=== PATIENT | female | born 1930 | race Caucasian/White ===

== ENCOUNTER 2017-11-06 23:00 | Inpatient (IN) | payer OTHER ==
[~2017-11-06] VITALS: Ht 165.1 cm; Wt 72.6 kg
--- NOTE | ~2017-11-06 | EKG ---
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
--- NOTE | ~2017-11-06 | PR ---
[place], [place] PROGRESS NOTE NAME: LENNY GREGORIO UNIT #: [id number] ROOM: 315 DOCTOR: MELODIE VIGIL MD BIRTHDATE: [birth year] DOS: 11/13/2017 CHIEF COMPLAINT: "Morning." SUMMARY OF THE VISIT: The patient was interviewed as she was resting quietly in bed. The respiratory therapist was there, listening to her lungs and did note that she felt that the one side sounded rather wet and congested. The patient herself voiced no complaints, smiled readily. Her responses though this morning tended to be short and simple. At times, it was hard to get her to focus. MENTAL STATUS: She is alert and oriented to self, unclear place, certainly not time. Mood is fairly euthymic. Affect appropriate. No yuriy, hypomania or psychosis is noted. Short term memory continues to be problematic. PLAN: I have ordered a chest x-ray, PA and left lateral along with a CBC with diff to rule out the possibility of pneumonia. We will continue her current psychotropics. I defer to the hospitalist expertise for any further intervention. MELODIE VIGIL MD CM:PNTRANS [id number] MELODIE VIGIL MD 11/13/17 1530 interface
--- NOTE | ~2017-11-06 | PR ---
[place], [place] PROGRESS NOTE NAME: LENNY GREGORIO UNIT #: [id number] ROOM: 315 DOCTOR: MELODIE VIGIL MD BIRTHDATE: [birth year] DOS: 11/14/2017 CHIEF COMPLAINT: "Oh, hi there." SUMMARY OF THE VISIT: The patient was interviewed in the dining area where she was sitting watching television. She engaged readily in brief superficial conversation. Of note, she continues to rub her hands. Attempts to stop her and redirect are only minimally effective. MENTAL STATUS: She is alert and oriented with time gaps. Mood does seem to be more euthymic. Affect is more appropriate. There is no yuriy, hypomania or psychosis. Short-term memory continues to be problematic. PLAN: I will maintain her current psychotropics, renew p.r.n. Ativan if she requires intervention. I have discussed with nursing the option of getting her meds to stop her from injuring her hands further. MELODIE VIGIL MD CM:PNTRANS [id number] MELODIE VIGIL MD 11/14/17 2215 interface
--- NOTE | ~2017-11-06 | PR ---
[place], [place] PROGRESS NOTE NAME: LENNY GREGORIO UNIT #: [id number] ROOM: 315 DOCTOR: MELODIE VIGIL MD BIRTHDATE: [birth year] DOS: 11/15/2017 CHIEF COMPLAINT: "Something is going on here." SUMMARY OF THE VISIT: The patient was interviewed in the dining area. She had already eaten her breakfast and was sitting there, some scanning behavior was noted and she voiced some paranoia, stating that something funny is going on here, but she could not put her finger on it. Nurses' notes similar behavior and that her paranoia seems to have increased in the last 24-48 hours. MENTAL STATUS: She is alert and oriented with time gaps. Mood does seem to be somewhat anxious and fretful and there is an increase in her paranoia. Short-term memory has gaps, otherwise, she is intact. PLAN: Increase her Risperdal from 0.25 mg twice a day to 0.5 mg twice a day. Monitor for risk, benefit, engage in individual and kent milieu activity, returning to the least restrictive environment when psychiatrically stable. MELODIE VIGIL MD CM:PNTRANS [phone] [id number] MELODIE VIGIL MD 11/15/172203 interface
--- NOTE | ~2017-11-06 | PR ---
[place], [place] PROGRESS NOTE NAME: LENNY GREGORIO UNIT #: [id number] ROOM: 315 DOCTOR: MELODIE VIGIL MD BIRTHDATE: [birth year] DOS: 11/16/2017 INTERVAL NOTE CHIEF COMPLAINT: "Oh, hello doctor." SUMMARY OF THE VISIT: The patient was interviewed in the dining area after she had completed her breakfast. She continues to rub her hands nonstop. She continues to do so whenever her gloves are removed. She is rubbing herself to the point where she is quite bruised on her hands, attempts to redirect her and successful. MENTAL STATUS: She is alert and oriented. She does seem to be somewhat fretful and anxious. She redirects well. She is trending towards euthymia and there is no hypomania or psychosis noted. Short term memory continues to be problematic. PLAN: I will add low dose Atarax 10 mg 3 times a day to try to decrease some of her anxiety without making her overly sedate. We will engage in individual and kent milieu activity, returning to the least restrictive environment when psychiatrically stable. MELODIE VIGIL MD CM:PNTRANS 0 07 MELODIE VIGIL MD 11/16/172205 interface
--- NOTE | ~2017-11-06 | PR ---
[place], [place] PROGRESS NOTE NAME: LENNY GREGORIO UNIT #: [id number] ROOM: 315 DOCTOR: MELODIE VIGIL MD BIRTHDATE: [birth year] DOS: 11/08/2017 CHIEF COMPLAINT: "I have been here for about a week. I slept here last night." SUMMARY OF THE VISIT: The patient was interviewed in the dining area where she was sitting engaging in conversation with a peer. She stopped and engaged in conversation with me. She voiced no complaint. She is very confused; however, and reports that she believes she has been here for about a week or so having slept here last night. She could not tell me what she had for breakfast and deflected the questions. MENTAL STATUS: She is alert and oriented to person, possibly place, not to time. Mood does seem to be fairly euthymic. Affect appropriate. There still seems to be residual psychotic symptoms present. Short-term memory has gaps. PLAN: I will add Exelon patch 4.6 mg a day and plan to augment with Namenda, add Risperdal 0.25 mg twice daily to address some of the delusional system. Engage in individual and kent milieu activity, returning home or the least restrictive environment when psychiatrically stable. MELODIE VIGIL MD CM:PNTRANS [id number] MELODIE VIGIL MD 11/08/17 2211 interface
--- NOTE | ~2017-11-06 | PR ---
[employer], [place] PROGRESS NOTE NAME: LENNY GREGORIO UNIT #: [id number] ROOM: 315 DOCTOR: MELODIE VIGIL MD BIRTHDATE: [birth year] DOS: 11/12/2017 CHIEF COMPLAINT: "Oh good morning, thank you for stopping." SUMMARY OF THE VISIT: The patient was interviewed as she was sitting in the dining area finishing her breakfast. She stopped and engaged in pleasant conversation. She seemed calmer and less anxious, less depressed. She engaged in very superficial conversation. At times, her responses were not appropriate to the questions asked. She remains confused. MENTAL STATUS: She is alert and oriented to person, possibly place, although doubtful not to time. Mood does seem to be trending towards euthymia. Affect is more appropriate. There is no yuriy, hypomania or psychosis. Short term memory continues to be problematic. PLAN: I will max out her Namenda now bringing the dose to 10 mg twice a day, augmenting the effectiveness of the Exelon patch, continue to engage in individual and kent milieu activity, returning then to the least restrictive environment when psychiatrically stable. MELODIE VIGIL MD CM:PNTRANS MELODIE VIGIL MD 11/12/1733 interface
--- NOTE | ~2017-11-06 | DS ---
[place], [place] DISCHARGE SUMMARY [id number] UN[facility] #: [id number] ROOM: 315 DOCTOR: MELODIE VIGIL MD BIRTHDATE: [birth year] DOS: 11/17/2017 CHIEF COMPLAINT: "There is pain to all over my hands." HISTORY OF PRESENT ILLNESS: This is an 86-year-old white female who lives at [facility] in [place]. The patient presents due to increased mood lability and excessive rubbing and picking at her arms to the point of drawing blood and making them bruised. She reports that somebody has painted red paint on her or that there is something under her skin. She continues to rub her hands to the point that they are raw. Attempts to redirect have led to her becoming increasingly more agitated and aggressive. She is admitted now to rule out organic factors to attempt to stabilize on medication, to engage in individual and kent milieu activity and to determine the least restrictive environment to which she could return. SUMMARY OF HOSPITAL COURSE: The patient was admitted to the unit where her Zoloft was discontinued in lieu of Risperdal 0.5 twice a day. Additionally, Exelon patch and Namenda were utilized to combat the symptoms of dementia. They were utilized to help improve or maintain ADLs, behavior and cognition. She tolerated all of these medicines well and the dose of the Exelon and Namenda were rapidly brought up to their maximum doses with the Exelon being brought up to 13.3 mg daily and Namenda 10 mg twice daily. Again, she tolerated these medications well. During this course of time, her agitation and aggression dissipated and she was bright, pleasant and cooperative. She still rubbed her hands, but would redirect more readily. We did find that if we put mittens on her, that she would stop doing so and she was very comfortable in doing this. Toward the latter part of her stay, Atarax 10 mg 3 times a day was added to further help decrease her anxiety, which seemed to precipitate some of the scratching. Again, she tolerated the medications well. There was no sedation, somnolence, extrapyramidal symptoms or tardive dyskinesia. She was discharged then back to [facility] to return back to her living environment. MENTAL STATUS AT DISCHARGE: She is alert and oriented to person, possibly place, although doubtful, not time. Mood does seem to be more euthymic. Affect appropriate. There is no yuriy, hypomania or psychosis. Short-term memory is very problematic, otherwise she is intact. FINAL DIAGNOSES: Brief psychotic disorder; anxiety disorder, not otherwise specified and Alzheimer's dementia. DISPOSITION: The patient's prescriptions have been e-scribed to the [facility] pharmacy. She will return to [facility] and have followup per the facility psychiatrist. [place], [place] DISCHARGE SUMMARY NAME: LENNY GREGORIO UNIT #: [id number] ROOM: 315 DOCTOR: MELODIE VIGIL MD BIRTHDATE: [birth year] MELODIE VIGIL MD CM:TIFFANI [id number] MELODIE VIGIL MD 11/17/17 1841 interface
[2017-11-06 23:02] VITALS: BP 130/62
[2017-11-06 23:23] LABS: BASO % 0.5 % (0.0-1.0); EOS # 0.2 10*3/uL (0.0-0.4); HEMOGLOBIN 12.2 g/dl (12.0-16.0); LYMPH # 2.2 10*3/uL (1.3-4.4); LYMPH % 28.5 % (27.0-41.0); MEAN CELL VOLUME 92.9 fl (81.0-99.0); MEAN CORPUSCULAR HGB 29.8 pg (27.0-31.0); MEAN CORPUSCULAR HGB CONC 32.1 g/dl (33.0-37.0); MEAN PLATELET VOLUME 10.7 fl (9.6-12.3); MONO # 0.5 10*3/uL (0.1-1.0); MONO % 6.9 % (3.0-9.0); NEUT # 4.7 10*3/uL (2.3-7.9); NEUT % 61.8 % (47.0-73.0); PLATELET COUNT AUTOMATED 170 10*3/uL (130-400); RED BLOOD COUNT 4.09 10*6/uL (4.10-5.10); RED CELL DISTRI WIDTH 14.6 % (0-14.5); WHITE BLOOD COUNT 7.7 10*3/uL (4.8-10.8)
[2017-11-06 23:40] LABS: ALBUMIN 3.3 gm/dl (3.1-4.5); ALKALINE PHOSPHATASE 84 U/L (45-117); BUN 23 mg/dl (7-24); CHLORIDE 104 mmol/L (98-107); POTASSIUM 3.7 mmol/L (3.5-5.1); SGOT/AST 24 IU/L (3-35); SGPT/ALT 18 U/L (12-78); SODIUM 140 mmol/L (136-145); TOTAL PROTEIN 6.6 gm/dL (6.4-8.2)
[2017-11-06 23:47] LABS: ACETAMINOPHEN (TYLENOL) 4.9 ug/ml (10-30); ETHYL ALCOHOL < 3.0 mg/dl (<3)
[2017-11-06 23:59] LABS: BILIRUBIN NEGATIVE (NEGATIVE); BLOOD NEGATIVE (NEGATIVE); CLARITY SL CLOUDY (CLEAR); COLOR YELLOW (YELLOW); GLUCOSE NEGATIVE (NEGATIVE); KETONE NEGATIVE (NEGATIVE); LEUKO ESTERASE NEGATIVE (NEGATIVE); NITRITE POSITIVE (NEGATIVE); PH 5.5 (5.0-9.0); UROBILINOGEN 0.2 E.U./dl (0.2-1.0)
[2017-11-07] MEDS ORDERED: LASIX40 MG PO (00:05)
[2017-11-07] MEDS ORDERED: POTASSIUM CHLO10 ME5 PO (00:07)
[2017-11-07] MEDS ORDERED: POTASSIUM CHLO20 ME3 PO (00:07)
[2017-11-07] MEDS ORDERED: LISINOPRIL20 MG PO (00:08)
[2017-11-07] MEDS ORDERED: OXYBUTYNIN5 MG PO (00:08)
[2017-11-07] MEDS ORDERED: VICODIN 5-3001 EACH PO (00:09)
[2017-11-07] MEDS ORDERED: XARE20MG PO (00:09)
[2017-11-07] MEDS ORDERED: METOPROLOL SUCC25 M2 PO (00:09)
[2017-11-07 00:14] LABS: URINE AMPHETAMINES < 1000 (1000ng/ml); URINE BARBITURATES < 200 (200ng/ml); URINE BENZODIAZEPINES < 200 (200ng/ml); URINE CANNABINOIDS (THC) < 50 (50ng/ml); URINE COCAINE < 300 (300ng/ml); URINE METHADONE < 300 (300ng/ml); URINE OPIATES < 300 (300ng/ml)
[2017-11-07 00:16] LABS: BACTERIA 4+; RBC 0-2 rbc/hpf (0-2); URINE PHENCYCLIDINE < 25 (25ng/ml)
[2017-11-07] MEDS ORDERED: MACROBID100 M1 PO (00:58)
[2017-11-07 01:18] LABS: INTERNATIONAL NORM RATIO 1.9 (2.0-3.5)
[2017-11-07 02:56] VITALS: BP 114/64
[2017-11-07 02:57] VITALS: BP 114/64
[2017-11-07 03:04] VITALS: BP 114/64
[2017-11-07 07:49] VITALS: BP 118/76
[2017-11-07 07:53] LABS: BUN 18 mg/dl (7-24); CHLORIDE 107 mmol/L (98-107); CREATININE 0.84 mg/dL (0.55-1.02); POTASSIUM 3.4 mmol/L (3.5-5.1); SODIUM 141 mmol/L (136-145)
[2017-11-07] MEDS ORDERED: SERTRALINE HYD100 MG PO (09:59)
[2017-11-07] MEDS ORDERED: COUMADIN2.5 M1 PO (10:00)
[2017-11-07] MEDS ORDERED: 'KLONOPIN0.5 MG PO (10:01)
[2017-11-07] MEDS ORDERED: FLONASE ALLERG9.9 ML NAS (10:02)
[2017-11-07 19:40] VITALS: BP 116/67
[2017-11-08 06:56] LABS: BUN 16 mg/dl (7-24); CHLORIDE 105 mmol/L (98-107); POTASSIUM 3.7 mmol/L (3.5-5.1); SODIUM 141 mmol/L (136-145)
[2017-11-08 07:03] LABS: BASO % 0.3 % (0.0-1.0); EOS # 0.2 10*3/uL (0.0-0.4); EOS % 1.9 % (1.0-4.0); HEMATOCRIT 39.9 % (37.0-47.0); HEMOGLOBIN 12.8 g/dl (12.0-16.0); LYMPH # 1.5 10*3/uL (1.3-4.4); LYMPH % 15.4 % (27.0-41.0); MEAN CELL VOLUME 93.2 fl (81.0-99.0); MEAN CORPUSCULAR HGB 29.9 pg (27.0-31.0); MEAN CORPUSCULAR HGB CONC 32.1 g/dl (33.0-37.0); MEAN PLATELET VOLUME 11.2 fl (9.6-12.3); MONO # 0.4 10*3/uL (0.1-1.0); MONO % 3.9 % (3.0-9.0); NEUT # 7.4 10*3/uL (2.3-7.9); NEUT % 78.2 % (47.0-73.0); PLATELET COUNT AUTOMATED 163 10*3/uL (130-400); RED BLOOD COUNT 4.28 10*6/uL (4.10-5.10); RED CELL DISTRI WIDTH 14.8 % (0-14.5); WHITE BLOOD COUNT 9.5 10*3/uL (4.8-10.8)
[2017-11-08 07:28] LABS: INTERNATIONAL NORM RATIO 1.8 (2.0-3.5)
[2017-11-08 08:14] VITALS: BP 110/62
[2017-11-08 20:15] VITALS: BP 106/60
[2017-11-09 08:07] VITALS: BP 132/68
[2017-11-09 19:50] VITALS: BP 114/59
[2017-11-10 07:37] VITALS: BP 129/69
[2017-11-10 07:43] LABS: INTERNATIONAL NORM RATIO 1.9 (2.0-3.5)
[2017-11-10 19:43] VITALS: BP 142/50
[2017-11-11 06:41] LABS: INTERNATIONAL NORM RATIO 1.8 (2.0-3.5)
[2017-11-11 07:31] VITALS: BP 150/76
[2017-11-11 19:53] VITALS: BP 157/87
[2017-11-12 07:09] VITALS: BP 148/86
[2017-11-12 07:15] LABS: INTERNATIONAL NORM RATIO 1.7 (2.0-3.5)
[2017-11-12 20:00] VITALS: BP 138/70
[2017-11-13 07:56] VITALS: BP 143/72
[2017-11-13 11:00] LABS: BASO # 0.1 10*3/uL (0.0-0.1); BASO % 0.7 % (0.0-1.0); EOS # 0.2 10*3/uL (0.0-0.4); EOS % 2.6 % (1.0-4.0); HEMATOCRIT 42.3 % (37.0-47.0); HEMOGLOBIN 13.6 g/dl (12.0-16.0); LYMPH % 14.1 % (27.0-41.0); MEAN CORPUSCULAR HGB 29.9 pg (27.0-31.0); MEAN CORPUSCULAR HGB CONC 32.2 g/dl (33.0-37.0); MEAN PLATELET VOLUME 10.2 fl (9.6-12.3); MONO # 0.4 10*3/uL (0.1-1.0); MONO % 5.7 % (3.0-9.0); NEUT # 5.2 10*3/uL (2.3-7.9); NEUT % 76.6 % (47.0-73.0); PLATELET COUNT AUTOMATED 180 10*3/uL (130-400); RED BLOOD COUNT 4.55 10*6/uL (4.10-5.10); RED CELL DISTRI WIDTH 14.8 % (0-14.5); WHITE BLOOD COUNT 6.8 10*3/uL (4.8-10.8)
[2017-11-13 19:45] VITALS: BP 139/85
[2017-11-14 07:14] LABS: BASO % 0.3 % (0.0-1.0); EOS # 0.1 10*3/uL (0.0-0.4); EOS % 0.8 % (1.0-4.0); LYMPH # 1.7 10*3/uL (1.3-4.4); LYMPH % 18.5 % (27.0-41.0); MEAN CELL VOLUME 93.5 fl (81.0-99.0); MEAN CORPUSCULAR HGB 30.4 pg (27.0-31.0); MEAN CORPUSCULAR HGB CONC 32.5 g/dl (33.0-37.0); MEAN PLATELET VOLUME 10.6 fl (9.6-12.3); MONO # 0.5 10*3/uL (0.1-1.0); MONO % 5.8 % (3.0-9.0); NEUT # 6.8 10*3/uL (2.3-7.9); NEUT % 74.3 % (47.0-73.0); PLATELET COUNT AUTOMATED 173 10*3/uL (130-400); RED BLOOD COUNT 3.72 10*6/uL (4.10-5.10); WHITE BLOOD COUNT 9.1 10*3/uL (4.8-10.8)
[2017-11-14 07:16] LABS: HEMATOCRIT 34.8 % (37.0-47.0); HEMOGLOBIN 11.3 g/dl (12.0-16.0)
[2017-11-14 07:43] LABS: BUN 26 mg/dl (7-24); CHLORIDE 107 mmol/L (98-107); CREATININE 0.84 mg/dL (0.55-1.02); POTASSIUM 3.4 mmol/L (3.5-5.1); SODIUM 142 mmol/L (136-145)
[2017-11-14 07:49] VITALS: BP 133/75
[2017-11-14 20:01] VITALS: BP 130/53
[2017-11-15 07:39] VITALS: BP 135/78
[2017-11-15 19:26] VITALS: BP 132/76
[2017-11-16 07:32] VITALS: BP 114/66
[2017-11-16 19:45] VITALS: BP 124/63
[2017-11-17 07:48] VITALS: BP 134/79
[2017-11-17] MEDS ORDERED: ATARAX,VISTARIL10 MG PO (09:58)
[2017-11-17] MEDS ORDERED: EXELON13.3 MG/21 T (09:58)
[2017-11-17] MEDS ORDERED: RISPERIDONE0.5 MG PO (09:58)
[2017-11-17] MEDS ORDERED: Vitamin D PO (09:59)
[2017-11-17] MEDS ORDERED: MEMANTINE HCL10 MG PO (09:59)
[2018-01-02] MEDS ORDERED: COUMADIN5 M2 PO (00:09)
[2018-01-02] MEDS ORDERED: ZIPRASIDONE HCL20 M1 PO (00:11)
[2018-01-02] MEDS ORDERED: NYSTOP60 GM T (00:19)
[2018-01-10] MEDS ORDERED: DIVALPROEX SOD125 MG PO (11:08)
[2018-01-10] MEDS ORDERED: MEMANTINE HCL10 MG PO (11:08)
[2018-01-10] MEDS ORDERED: BRIN20TA PO (11:08)
[2018-01-10] MEDS ORDERED: EXELON13.3 MG/21 T (11:08)
== END 2017-11-17 15:25 | disposition home or self-care (01) | DRG 56 ==
LOC: ED 23:00 → 3N 11-07 00:57
PROVIDERS: Emergency Medicine; Internal Medicine; Psychiatry & Neurology Psychiatry; Student in an Organized Health Care Education/Training Program
DX: G30.9 Alzheimer's disease, unspecified (principal); N17.0 Acute kidney failure with tubular necrosis; F23 Brief psychotic disorder; N39.0 Urinary tract infection, site not specified; R82.71 Bacteriuria; R32 Unspecified urinary incontinence; F41.9 Anxiety disorder, unspecified; F02.80 Dementia in other diseases classified elsewhere, unspecified severity, without behavioral disturbance, psychotic disturbance, mood disturbance, and anxiety; I10 Essential (primary) hypertension; I48.91 Unspecified atrial fibrillation; N32.81 Overactive bladder; E66.3 Overweight; H91.13 Presbycusis, bilateral; Z79.01 Long term (current) use of anticoagulants; Z86.73 Personal history of transient ischemic attack (TIA), and cerebral infarction without residual deficits; Z79.899 Other long term (current) drug therapy; Z90.49 Acquired absence of other specified parts of digestive tract; Z68.26 Body mass index [BMI] 26.0-26.9, adult

== ENCOUNTER 2017-12-05 22:37 | Emergency (ER) | payer OTHER ==
[~2017-12-05] VITALS: Wt 72.6 kg
--- NOTE | ~2017-12-05 | EKG ---
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
[~2017-12-05 22:37] MED LIST: 'KLONOPIN0.5 MG PO; ATARAX,VISTARIL10 MG PO; COUMADIN2.5 M1 PO; EXELON13.3 MG/21 T; FLONASE ALLERG9.9 ML NAS; LASIX40 MG PO; LISINOPRIL20 MG PO; MACROBID100 M1 PO; MEMANTINE HCL10 MG PO; METOPROLOL SUCC25 M2 PO; OXYBUTYNIN5 MG PO; POTASSIUM CHLO10 ME5 PO; POTASSIUM CHLO20 ME3 PO; RISPERIDONE0.5 MG PO; SERTRALINE HYD100 MG PO; VICODIN 5-3001 EACH PO; Vitamin D PO; XARE20MG PO
[2017-12-05 23:22] LABS: BASO # 0.1 10*3/uL (0.0-0.1); BASO % 0.7 % (0.0-1.0); EOS # 0.2 10*3/uL (0.0-0.4); EOS % 3.3 % (1.0-4.0); HEMOGLOBIN 12.3 g/dl (12.0-16.0); LYMPH # 1.6 10*3/uL (1.3-4.4); LYMPH % 23.3 % (27.0-41.0); MEAN CELL VOLUME 92.2 fl (81.0-99.0); MEAN CORPUSCULAR HGB 29.9 pg (27.0-31.0); MEAN CORPUSCULAR HGB CONC 32.4 g/dl (33.0-37.0); MEAN PLATELET VOLUME 10.6 fl (9.6-12.3); MONO # 0.4 10*3/uL (0.1-1.0); MONO % 5.3 % (3.0-9.0); NEUT # 4.7 10*3/uL (2.3-7.9); NEUT % 67.1 % (47.0-73.0); PLATELET COUNT AUTOMATED 169 10*3/uL (130-400); RED BLOOD COUNT 4.12 10*6/uL (4.10-5.10); RED CELL DISTRI WIDTH 14.6 % (0-14.5)
[2017-12-05 23:37] LABS: ACETAMINOPHEN (TYLENOL) < 2.0 ug/ml (10-30); ALBUMIN 3.3 gm/dl (3.1-4.5); ALKALINE PHOSPHATASE 96 U/L (45-117); BUN 22 mg/dl (7-24); CHLORIDE 105 mmol/L (98-107); CREATININE 1.34 mg/dL (0.55-1.02); ETHYL ALCOHOL < 3.0 mg/dl (<3); POTASSIUM 3.9 mmol/L (3.5-5.1); SGOT/AST 28 IU/L (3-35); SGPT/ALT 21 U/L (12-78); SODIUM 141 mmol/L (136-145); TOTAL PROTEIN 7.1 gm/dL (6.4-8.2)
[2017-12-05] MEDS ORDERED: ALLEGRA-D 24 H1 EACH PO (23:47)
[2017-12-05] MEDS ORDERED: LASIX40 MG PO (23:47)
[2017-12-05 23:48] LABS: BILIRUBIN NEGATIVE (NEGATIVE); BLOOD NEGATIVE (NEGATIVE); CLARITY SL CLOUDY (CLEAR); COLOR YELLOW (YELLOW); GLUCOSE NEGATIVE (NEGATIVE); KETONE NEGATIVE (NEGATIVE); LEUKO ESTERASE TRACE (NEGATIVE); NITRITE NEGATIVE (NEGATIVE); SPECIFIC GRAVITY 1.015 (1.005-1.030); UROBILINOGEN 0.2 E.U./dl (0.2-1.0)
[2017-12-05] MEDS ORDERED: HYDROXYZINE HCL10 MG PO (23:48)
[2017-12-05] MEDS ORDERED: PRINIVIL10 MG PO (23:48)
[2017-12-05] MEDS ORDERED: JANTOVEN2.5 MG PO (23:48)
[2017-12-05] MEDS ORDERED: TOPROL XL25 MG PO (23:49)
[2017-12-05] MEDS ORDERED: [UNRECOGNIZED DRUG - OTHER] T (23:50)
[2017-12-05] MEDS ORDERED: POTASSIUM CHLO20 ME3 PO (23:50)
[2017-12-05 23:54] LABS: EPITHELIAL CELLS 30-35
[2017-12-05] MEDS ORDERED: EXELON13.3 MG/21 TD (23:55)
[2017-12-05] MEDS ORDERED: RISPERDAL0.5 MG PO (23:55)
[2017-12-05 23:56] LABS: URINE AMPHETAMINES < 1000 (1000ng/ml); URINE BARBITURATES < 200 (200ng/ml); URINE BENZODIAZEPINES < 200 (200ng/ml); URINE CANNABINOIDS (THC) < 50 (50ng/ml); URINE COCAINE < 300 (300ng/ml); URINE METHADONE < 300 (300ng/ml); URINE OPIATES < 300 (300ng/ml)
[2017-12-05] MEDS ORDERED: VITAMIN D50000 UNIT PO (23:56)
[2017-12-05] MEDS ORDERED: TYLENOL325 M2 PO (23:56)
[2017-12-05] MEDS ORDERED: BISAC-EVAC10 MG R (23:57)
[2017-12-05] MEDS ORDERED: 24 HOUR ALLER15.8 ML NAS (23:58)
[2017-12-05 23:59] LABS: URINE PHENCYCLIDINE < 25 (25ng/ml)
[2017-12-05] MEDS ORDERED: ANTI-DIARRHEAL2 MG PO (23:59)
[2017-12-05] MEDS ORDERED: OXYBUTYNIN5 MG PO (23:59)
[2017-12-06] LABS: BACTERIA 2+; YEAST TRACE
[2017-12-06] MEDS ORDERED: MILK OF MA400 MG/5 M PO
[2017-12-06] MEDS ORDERED: ENEMA READY-TO133 ML R (00:01)
[2017-12-06] MEDS ORDERED: RULOX SUSPENSI355 ML PO (00:02)
[2017-12-06 00:51] LABS: INTERNATIONAL NORM RATIO 1.6 (2.0-3.5)
[2017-12-06] MEDS ORDERED: CEPHALEXIN500 M1 PO (01:09)
[2018-01-02] MEDS ORDERED: COUMADIN5 M2 PO (00:09)
[2018-01-02] MEDS ORDERED: ZIPRASIDONE HCL20 M1 PO (00:11)
[2018-01-02] MEDS ORDERED: NYSTOP60 GM T (00:19)
[2018-01-10] MEDS ORDERED: BRIN20TA PO (11:08)
[2018-01-10] MEDS ORDERED: MEMANTINE HCL10 MG PO (11:08)
[2018-01-10] MEDS ORDERED: EXELON13.3 MG/21 T (11:08)
[2018-01-10] MEDS ORDERED: DIVALPROEX SOD125 MG PO (11:08)
== END 2017-12-06 02:04 | disposition other institution (70) ==
LOC: ED 22:37
PROVIDERS: Emergency Medicine
DX: N39.0 Urinary tract infection, site not specified (principal); I10 Essential (primary) hypertension; I48.91 Unspecified atrial fibrillation; Z79.899 Other long term (current) drug therapy; Z86.73 Personal history of transient ischemic attack (TIA), and cerebral infarction without residual deficits